=== PATIENT | female | born 1955 | race Caucasian/White ===

== ENCOUNTER 2020-03-29 19:52 | Emergency (ER) | payer MEDICAID, MEDICARE ==
[2020-03-29 20:10] VITALS: O2SAT 99
--- NOTE | 2020-03-29 20:47 | ERPHSYRPT ---
- History of Present Illness Time Seen by Provider: 03/29/20 20:10 Source: patient Exam Limitations: no limitations Patient Subjective Stated Complaint: pt states "I fell going to get the mail." Triage Nursing Assessment: pt came into the er via wheelchair; pt axo x3; c/o fall with injury to rt ankle; pt states 7/10 pain to rt ankle; rt ankle is swollen; good cap refill to RLE; strong pedal pulses to RLE; decreased ROM to rt ankle due to pain; hypertension Physician History: Patient is a 64-year-old female presents to our emergency department with complaints of pain to her right ankle. Patient was outdoors getting her mail when she inverted her right ankle fell. Patient slipped and fell due to the snow and ice. The fall was not associated with any neuro or cardiovascular symptomology. Pain described as an ache that is well localized. No radiation. Pain worse with movement and palpation and weightbearing. No other injuries reported. No BHT or LOC. No neck pain. No chest pain. No shortness of breat h. Symptoms are mild to moderate in intensity. No other injuries reported. Cervical spine cleared clinically. Patient voices no other complaints concerns at this time. Method of Injury: fell Occurred: just prior to arrival Quality: constant Severity of Pain-Max: moderate Severity of Pain-Current: mild Lower Extremities Pain: ankle: right Modifying Factors: Improves With: movement Associated Symptoms: none, unable to bear weight, No dizzy, No fainted, No seizure, No snapping sensation, No popping sensation Allergies/Adverse Reactions: No Known Drug Allergies Allergy (Unverified 03/29/20 19:58) Home Medications: Metoprolol Succinate 50 mg PO BID 03/29/20 [History] hydroCHLOROthiazide [Hydrochlorothiazide] 12.5 mg PO DAILY 03/29/20 [History] Hx Tetanus, Diphtheria Vaccination/Date Given: Yes Hx Influenza Vaccination/Date Given: No Hx Pneumococcal Vaccination/Date Given: No Travel Risk - International Travel Have you traveled outside of the country in past 3 weeks: No - Coronavirus Screening Are you exhibiting any of the following symptoms?: No Close contact with a COVID-19 positive Pt in past 14-21 Days: No - Review of Systems Constitutional: No Symptoms, No Fever, No Chills Eyes: No Symptoms Ears, Nose, & Throat: No Symptoms Respiratory: No Symptoms, No Cough, No Dyspnea Cardiac: No Symptoms, No Chest Pain, No Edema, No Syncope Abdominal/Gastrointestinal: No Abdominal Pain, No Nausea, No Vomiting, No Diarrhea Genitourinary Symptoms: No Symptoms, No Dysuria Musculoskeletal: No Symptoms, No Back Pain, No Neck Pain Skin: No Symptoms, No Rash Neurological: No Symptoms, No Dizziness, No Focal Weakness, No Sensory Changes Psychological: No Symptoms Endocrine: No Symptoms Hematologic/Lymphatic: No Symptoms Immunological/Allergic: No Symptoms All Other Systems: Reviewed and Negative - Past Medical History Pertinent Past Medical History: Yes Cardiac History: Hypertension - Past Surgical History Past Surgical History: Yes Female Surgical History: Hysterectomy - Social History Smoking Status: Smoker, status unknown Exposure to second hand smoke: No Drug Use: none Patient Lives Alone: No - Nursing Vital Signs Nursing Vital Signs: Initial Vital Signs Temperature 98.2 F 03/29/20 20:00 Pulse Rate 77 03/29/20 20:00 Respiratory Rate 18 03/29/20 20:00 Blood Pressure 177/84 03/29/20 20:00 O2 Sat by Pulse Oximetry 99 03/29/20 20:00 Pain Scale Pain Intensity 7 - Physical Exam General Appearance: no apparent distress, alert Eyes, Ears, Nose, Throat Exam: moist mucous membranes Neck Exam: non-tender, supple Cardiovascular/Respiratory Exam: chest non-tender, normal breath sounds, regular rate/rhythm, no respiratory distress Gastrointestinal/Abdominal Exam: non-tender, guarding Back Exam: normal inspection, No vertebral tenderness Hips Exam: bilateral: non-tender, normal inspection, normal range of motion, no evidence of injury Legs Exam: bilateral leg: non-tender, normal inspection, normal range of motion, no evidence of injury Knees Exam: bilateral knee: non-tender, normal inspection, normal range of motion, no evidence of injury Ankle Exam: right ankle: pain, soft tissue tenderness, swelling, other (Right ankle swelling. Tenderness to palpation over the lateral malleolus. PT DP pulse palpable. Compartments are soft. Cap refill less than 2 seconds. Range of motion limited due to pain.), left ankle: non-tender, normal inspection, normal range of motion, no evidence of injury Foot Exam: bilateral foot: non-tender, normal inspection, normal range of motion, no evidence of injury Neuro/Tendon Exam: normal sensation, normal motor functions Mental Status Exam: alert, oriented x 3, cooperative Skin Exam: normal color, warm, dry SpO2 Interpretation: normal SpO2: 99 O2 Delivery: Room Air - Course Nursing assessment & vital signs reviewed: Yes - Radiology Exams Ankle X-ray Interpretation: Reviewed by me (Right ankle fracture. Right lateral malleolus minimally fracture.) Ordered Tests: Active Orders 24 hr Category Date Time Status Cold Application STAT Care 03/29/20 20:07 Active ANKLE (3 VIEWS) Stat Exams 03/29/20 20:02 Taken - Progress Progress: unchanged, improved Progress Note: 03/29/20 20:52 Patient declined pain medication. Patient placed in a short leg post mold splint. Bilateral axillary crutches provided. Orthopedic referral provided. Patient neurovascular intact distally post splint application. Patient will take [id number] analgesics as needed for pain. Patient voices no other complaints or concerns at this time. Will discharge home. Counseled pt/family regarding: diagnosis, need for follow-up, rad results - Departure Departure Disposition: Home Clinical Impression: Ankle fracture, right Condition: Stable Critical Care Time: No Referrals: NORMA TO MD [Primary Care Provider] - Additional Instructions: Discharge/Care Plan LORRI PEREZ was seen on 03/29/20 in the Emergency Room. The patient was counseled regarding Diagnosis,Lab results, Imaging studies, need for follow up and when to return to the Emergency Room. Prescriptions given: Discharge Note I have spoken with the patient and/or caregivers. I have explained the patient's condition, diagnosis and treatment plan based on the information available to me at this time. I have answered the patient's and/or caregiver's questions and addressed any concerns. The patient and/or caregivers have as good understanding of the patient's diagnosis, condition and treatment plan as can be expected at this point. The vital signs have been stable. The patient's condition is stable and appropriate for discharge from the emergency department. The patient will pursue further outpatient evaluation with the primary care physician or other designated or consulting physician as outlined in the discharge instructions. The patient and/or caregivers are agreeable to this plan of care and follow-up instructions have been explained in detail. The patient and/or caregivers have received these instruction. The patient/and or caregivers are aware that any significant change in condition or worsening of symptoms should prompt an immediate return to this or the closest emergency department or call 911. Outpatient Orders: Ortho Referral Time Frame: 1 Day, Facility: [facility], Location: ORTHO CLINIC
[2020-03-29 20:56] VITALS: BP 157/108; PULSE 76
--- NOTE | 2020-03-30 09:03 | XRAY ---
Indication: Pain following injury. Comparison: None 3 view right ankle demonstrates nondisplaced lateral malleolus fracture with anterolateral soft tissue swelling and incidental small heel spurs. No other bony, articular, or soft tissue abnormalities.
== END 2020-03-29 21:05 | disposition home or self-care (01) ==
LOC: ED 19:52
DX: M25.571 Pain in right ankle and joints of right foot (principal); W00.0XXA Fall on same level due to ice and snow, initial encounter; M84.372A Stress fracture, left ankle, initial encounter for fracture
CPT/HCPCS: 29515; 73610; 99284

== ENCOUNTER 2025-01-28 19:44 | Emergency (ER) | payer MEDICARE, OTHER ==
--- NOTE | 2025-01-28 19:46 | ERPHSYRPT ---
- History of Present Illness Time Seen by Provider: 01/28/25 19:45 Source: patient, family Exam Limitations: no limitations Physician History: This is an obese 69-year-old white female patient brought to the emergency department by private vehicle and is a patient of Dr. To with the complaint of right ankle pain that occurred after she fell off of a stepstool at home. Patient has no other areas of pain complaints or injuries. Patient has a history of hypothyroidism, hypertension and diabetes. Occurred: just prior to arrival Reason for Fall: slipped (Off of a stepstool) Injuries/Pain Location: lower extremity (Right ankle) Loss of Consciousness: no loss of consciousness Quality: aching Severity of Pain-Max: moderate Severity of Pain-Current: moderate Modifying Factors: Improves With: movement Associated Symptoms (Fall): extremity injury (Right ankle injury) Allergies/Adverse Reactions: No Known Drug Allergies Allergy (Verified 01/28/25 19:51) Home Medications: Metoprolol Succinate 50 mg PO BID 03/29/20 [History] hydroCHLOROthiazide [Hydrochlorothiazide] 12.5 mg PO DAILY 03/29/20 [History] Insulin Degludec [Tresiba Flextouch U-100] 30 units DAILY 01/28/25 [History] Levothyroxine Sodium 100 Mcg [Synthroid 100 Mcg] 100 mcg PO DAILY 01/28/25 [History] Metformin HCl 500 mg [Glucophage 500 MG] 500 mg PO BIDWM 01/28/25 [History] Hx Tetanus, Diphtheria Vaccination/Date Given: Yes Hx Influenza Vaccination/Date Given: No Hx Pneumococcal Vaccination/Date Given: No Travel Risk - International Travel Have you traveled outside of the country in past 3 weeks: No - Emerging Infectious Disease Are you exhibiting symptoms associated with any current EIDs: No - Review of Systems Constitutional: No Symptoms Eyes: No Symptoms Ears, Nose, & Throat: No Symptoms Respiratory: No Symptoms Cardiac: No Symptoms Abdominal/Gastrointestinal: No Symptoms Genitourinary Symptoms: No Symptoms Musculoskeletal: Fall, Injury (Right ankle) Skin: No Symptoms Neurological: No Symptoms Psychological: No Symptoms Endocrine: No Symptoms Hematologic/Lymphatic: No Symptoms Immunological/Allergic: No Symptoms All Other Systems: Reviewed and Negative - Past Medical History Pertinent Past Medical History: Yes Cardiac History: Hypertension - Past Surgical History Past Surgical History: Yes Female Surgical History: Hysterectomy - Social History Smoking Status: Smoker, status unknown Exposure to second hand smoke: No Drug Use: none Patient Lives Alone: No - Nursing Vital Signs Nursing Vital Signs: Initial Vital Signs Temperature 97.8 F 01/28/25 19:56 Pulse Rate 74 01/28/25 19:56 Respiratory Rate 18 01/28/25 19:56 Blood Pressure 190/97 01/28/25 19:56 O2 Sat by Pulse Oximetry 98 01/28/25 19:56 Pain Scale Pain Intensity 5 - [place] Coma Score Best Eye Response ([place]): (4) open spontaneously Best Verbal Response ([place]): (5) oriented Best Motor Response ([place]): (6) obeys commands [place] Total: 15 - Physical Exam General Appearance: no apparent distress, alert, anxiety Head Injury: no evidence of injury Eye Exam: PERRL/EOMI, eyes nml inspection ENT Exam: airway nml, nml ext.inspection Neck Exam: supple, trachea midline, full range of motion, normal alignment, normal inspection Respiratory/Chest Exam: No chest tenderness, No respiratory distress, No crepitus Gastrointestinal Exam: No tenderness Back Exam: normal inspection, normal range of motion, No CVA tenderness, No vertebral tenderness Extremity Exam: normal range of motion, joint swelling (Right ankle laterally), bony point tenderness (Right ankle), tenderness (Right ankle) Neurologic Exam: alert, oriented x 3, cooperative, district manager primary care sales II-XII nml as tested, sensation nml Skin Exam: normal color, warm, dry SpO2 Interpretation: normal O2 Delivery: Room Air - Course Nursing assessment & vital signs reviewed: Yes Ordered Tests: Active Orders 24 hr Category Date Time Status ANKLE (3 VIEWS) Stat Exams 01/28/25 19:51 Taken Medication Summary Discontinued Medications Generic Name Dose Route Start Last Admin Trade Name Freq PRN Reason Stop Dose Admin Ibuprofen 600 mg 01/28/25 21:10 Ibuprofen 600 Mg Tablet PO 01/28/25 21:11 STAT ONE - Progress Progress: pain not gone completely, re-examined Progress Note: 01/28/25 21:17 My medical decision making and the assignment of low complexity of this patient's medical issue today is based on review of the patient's past medical history, reviewed the patient's medication list, reviewed patient drug allergy list, history present illness and physical findings on examination. The workup in this patient includes x-ray of the patient's right ankle. Differential diagnosis includes but is not limited to right ankle sprain, right ankle fracture, right ankle dislocation I interpreted the preliminary report of the patient's right ankle x-ray. I see no acute fracture but there is significant lateral soft tissue swelling. I see no acute dislocation. The radiologist interpreted the final report of the patient's right ankle x-ray. There is no acute fracture with evidence of soft tissue swelling. There is no dislocation. Counseled pt/family regarding: diagnosis, need for follow-up, rad results Medical Desision Making - Independent Historian Additional History obtained from: Family - Diagnostic Testing Diagnostic test were ordered, analyzed, and reviewed by me: Yes Radiological Interpretation: Interpreted by me, Reviewed by me, Teleradiologist Report - Risk of complications Low Risk: Low risk of morbidity from additional dx testing or treatment - Departure Departure Disposition: Home Clinical Impression: Right ankle sprain Condition: Stable Critical Care Time: No Referrals: NORMA TO MD [Primary Care Provider, INTERNAL MEDICINE] - Follow up/PCP as directed Additional Instructions: Weightbearing as tolerated. Wear the Ronaldo wrap for compression purposes. When not up and ambulating, make sure the right ankle is elevated above the level of your heart. If there are no contraindications use Tylenol and ibuprofen for pain control. Ice pack to swollen area 3 times a day for the next 72 hours. If symptoms persist beyond 72 hours or worsen prior to this time, you may follow-up with cinema operator, Dr. Rodriguez at [facility]. You will need to call to make an appointment
[2025-01-28 19:57] VITALS: RESP 18; TEMP 97.8
[2025-01-28] MEDS: MOTRIN 600 MG PO ONE (21:13)
[2025-01-28 22:03] VITALS: BP 165/86; PULSE 67; O2SAT 97
[2025-01-28] MEDS ORDERED: PERCOCET TABLET 5/325MG ONE (22:04)
[2025-01-28] MEDS: PERCOCET TABLET 5/325MG PO STA (22:05)
--- NOTE | 2025-01-29 08:39 | XRAY ---
Indication: Pain and swelling following fall. Comparison: May 25, 2020 3 view right ankle again demonstrates osteopenia, old lateral malleolus fracture, heel spurs, and anterior lateral soft tissue swelling. No other bony, articular, or soft tissue abnormalities.
== END 2025-01-28 22:20 | disposition home or self-care (01) ==
LOC: ED 19:44
DX: S93.401A Sprain of unspecified ligament of right ankle, initial encounter (principal); W08.XXXA Fall from other furniture, initial encounter; I10 Essential (primary) hypertension; E11.9 Type 2 diabetes mellitus without complications; Z79.4 Long term (current) use of insulin; Z79.84 Long term (current) use of oral hypoglycemic drugs; Z79.899 Other long term (current) drug therapy